=== PATIENT | male | born 1980 | race Native Hawaiian/Other Pacific Islander ===

== ENCOUNTER 2020-11-08 20:01 | Emergency (ER) | payer SELFPAY ==
[2020-11-08 20:32] LABS: BILIRUBIN,URINE NEGATIVE (NEGATIVE); GLUCOSE, URINE (UA) NEGATIVE (NEGATIVE); KETONES,URINE (UA) NEGATIVE (NEGATIVE); LEUKOCYTE ESTERASE, URINE NEGATIVE (NEGATIVE); NITRITE,URINE NEGATIVE (NEGATIVE); OCCULT BLOOD,URINE NEGATIVE (NEGATIVE); PH,URINE 6.5 PH (5.0-7.5); PROTEIN,URINE NEGATIVE (NEGATIVE); UROBILINOGEN,URINE 0.2 (NORMAL) E.U./dL (NORMAL)
[2020-11-08 20:34] LABS: CLARITY,URINE CLEAR (CLEAR)
[2020-11-08] MEDS ORDERED: cefTRIAXone 500 MG VIAL IM STA (21:46)
[2020-11-08] MEDS ORDERED: DOXYCYCLINE 100 MG TABLET PO STA (21:46)
[2020-11-08] MEDS ORDERED: LIDOCAINE 1% 2 ML VIAL MC ONE (21:46)
--- NOTE | 2020-11-08 21:48 | ED Physician Documentation ---
PD HPI MALE - Stated complaint Stated Complaint: MALE - Chief complaint Chief Complaint: UTI - History obtained from History obtained from: Patient - History of Present Illness Timing - onset: How many days ago (10) Timing - duration: Days (10) Timing - details: Gradual onset, Still present Associated symptoms: Dysuria, Testiclar pain. No: Discharge, Genital sore / lesion, Scrotal swelling PD HPI MALE CONTRIB FACTORS: Sexually active Similar symptoms before: Has not had sx before Recently seen: Not recently seen - Additional information Additional information: Previously well 39-year-old male has developed urinary frequency and dysuria as well as pain to the left testicle and scrotum. He does have a partner that he has been with within the past month and he is uncertain if there is a risk of STD.He has never had these symptoms previously and he is not otherwise ill. Review of Systems Constitutional: denies: Fever Eyes: denies: Decreased vision Ears: denies: Ear pain Nose: denies: Congestion Throat: denies: Sore throat Cardiac: denies: Chest pain / pressure Respiratory: denies: Dyspnea, Cough GI: denies: Vomiting, Constipation, Diarrhea : reports: Dysuria, Testicular pain. denies: Discharge Skin: denies: Rash Musculoskeletal: denies: Neck pain, Back pain, Extremity pain PD PAST MEDICAL HISTORY - Past Medical History Past Medical History: No - Past Surgical History Past Surgical History: No - Present Medications Home Medications: Ambulatory Orders Medication Instructions Recorded Confirmed Doxycycline Hyclate 100 mg PO BID #20 cap 11/08/20 - Allergies Allergies/Adverse Reactions: Allergies Allergy/AdvReac Type Severity Reaction Status Date / Time No Known Drug Allergies Allergy Verified 11/08/20 20:16 - Social History Does the pt smoke?: Yes Smoking Status: Current every day smoker Does the pt drink ETOH?: Yes Does the pt have substance abuse?: No - Immunizations Immunizations are current?: Yes PD ED PE NORMAL - Vitals Vital signs reviewed: Yes (hypertensive ) - General General: Alert and oriented X 3, No acute distress, Well developed/nourished - HEENT HEENT: Atraumatic, PERRL, EOMI - Respiratory Respiratory: No respiratory distress - Male Male : Other (tenderness to the epidydimis on the left not to the testicle. No adenopathy. no discharge. uncirc. 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, No motor deficit, No sensory deficit, Normal speech Eye Opening: Spontaneous Motor: Obeys Commands Verbal: Oriented GCS Score: 15 - Psych Psych: Normal mood, Normal affect Results - Vitals Vitals: Vital Signs - 24 hr 11/08/20 11/08/20 20:05 22:03 Temperature 37.1 C 37 C Heart Rate 81 79 Respiratory 16 16 Rate Blood Pressure 160/100 H 150/89 H O2 Saturation 98 99 Oxygen O2 Source Room air - Labs Labs: Laboratory Tests 11/08/20 20:22 Urine Color YELLOW Urine Clarity CLEAR Urine pH 6.5 Ur Specific [place] 1.025 Urine Protein NEGATIVE Urine Glucose (UA) NEGATIVE Urine Ketones NEGATIVE Urine Occult Blood NEGATIVE Urine Nitrite NEGATIVE Urine Bilirubin NEGATIVE Urine Urobilinogen 0.2 (NORMAL) Ur Leukocyte Esterase NEGATIVE Ur Microscopic Review NOT INDICATED Urine Culture Comments NOT INDICATED PD MEDICAL DECISION MAKING - ED course Complexity details: reviewed results, re-evaluated patient, considered differential, d/w patient ED course: 39-year-old male with left testicular pain actually has epididymitis and tender epididymis and not tender testicle. His testicular Doppler was negative and his epididymis on the left side appeared mildly inflamed. Neisseria and gonorrhea have been ordered from the patient's urine and he is administered 500 mg of Rocephin IM and 100 mg of doxycycline. Of course of doxycycline E scribed to [facility] Dep[facility] - Departure Disposition: 01 Home, Self Care Clinical Impression: Acute epididymitis Condition: Stable Instructions: ED Epididymitis Follow-Up: [facility] [Provider Group] Prescriptions: Doxycycline Hyclate 100 mg PO BID #20 cap Discharge Date/Time: 11/08/20 22:03
[2020-11-08 22:04] VITALS: BP 150/89
--- NOTE | 2020-11-08 22:23 | Ultrasound Report ---
PROCEDURE: Testicle w/Doppler INDICATIONS: L testicular pain x 10 days TECHNIQUE: Real-time scanning was performed of the scrotum and testicles, with image documentation. Color and p ulse Doppler interrogation was performed of both testicles. COMPARISON: None. FINDINGS: Right: Testicle is normal in size at 4.1 x 2.3 x 2.8 cm, and homogenous in echotexture. Epididymis is normal in overall size and morphology. No varicoceles. Moderate-sized right hydrocele. Overlying scrotal skin is normal in thickness. Nonspecific right scrotal calcification. Left: Testicle is normal in size at 3.9 x 2.4 x 2.7 cm, and homogeneous in echotexture. Epididymis is normal in overall size and morphology. No varicoceles. Mild-moderate left hydrocele. Overlying s crotal skin is normal in thickness. Doppler: Color and pulse Doppler demonstrate normal and symmetric arterial flow in both testicles. There is mildly increased vascularity of the left epididymis relative to the right epididymis. IMPRESSION: 1. Normal sonographic appearance of the bilateral testicles without evidence for torsion. 2. Asymmetric hyperemia of the left epididymis relative to the right. This may represent epididymitis . 3. Moderate right and mild-moderate left bilateral hydroceles. Reviewed by: Ravindra Patton MD on 11/08/2020 10:21 PM PDT Approved by: Ravindra Patton MD on 11/08/2020 10:21 PM PDT Station ID: [id number]
[2020-11-09 16:53] LABS: CHLAMYDIA TRACHOMATIS DNA NEGATIVE (NEGATIVE); NEISSERIA GONORRHOEAE DNA NEGATIVE (NEGATIVE)
== END 2020-11-08 22:03 | disposition home or self-care (01) ==
LOC: ED 20:01
DX: N45.1 Epididymitis (principal); F17.200 Nicotine dependence, unspecified, uncomplicated
CPT/HCPCS: 76870; 81003; 87491; 87591; 93975; 96372; 99283; 99284; A9270; 81001; 87086; 87661

== ENCOUNTER 2021-06-20 08:00 | Outpatient (CLI) | payer SELFPAY ==
[2021-06-20 23:46] LABS: CHLAMYDIA TRACHOMATIS DNA NEGATIVE (NEGATIVE); NEISSERIA GONORRHOEAE DNA NEGATIVE (NEGATIVE)
== END 2021-06-20 23:59 | disposition home or self-care (01) ==
LOC: LAB.N 08:00
PROVIDERS: ATTEND Family Medicine
DX: R30.0 Dysuria (principal)
CPT/HCPCS: 87491; 87591; 87661

== ENCOUNTER 2022-06-07 08:15 | Outpatient (CLI) | payer SELFPAY ==
[2022-06-07 20:56] LABS: CHLAMYDIA TRACHOMATIS DNA NEGATIVE (NEGATIVE); TRICHOMONAS VAGINALIS DNA NEGATIVE (NEGATIVE)
[2022-06-07 20:57] LABS: NEISSERIA GONORRHOEAE DNA NEGATIVE (NEGATIVE)
== END 2022-06-07 08:30 | disposition home or self-care (01) ==
LOC: LAB.N 08:15
PROVIDERS: ATTEND Registered Nurse
DX: N50.812 Left testicular pain (principal); R30.0 Dysuria
CPT/HCPCS: 87086; 87491; 87591; 87661